=== PATIENT | female | born 1940 | race Caucasian/White ===

== ENCOUNTER 2017-06-08 08:30 | Emergency (ER) | payer OTHER, MEDICAID ==
[~2017-06-08] VITALS: Ht 157.5 cm; Wt 56.2 kg
[2017-06-08 10:54] VITALS: BP 137/74
== END 2017-06-08 10:54 | disposition home or self-care (01) ==
LOC: ED 08:30
DX: J11.1 Influenza due to unidentified influenza virus with other respiratory manifestations (principal)
CPT/HCPCS: 87804